=== PATIENT | female | born 1970 | race Caucasian/White ===

== ENCOUNTER 2016-10-25 13:52 | Emergency (ER) | payer MEDICAID, OTHER ==
[~2016-10-25] VITALS: Ht 160 cm; Wt 61.4 kg
[~2016-10-25 13:52] MED LIST: IBUP-1827 PO; PRD5T PO; QUET100T69 PO; ZOV800 PO
[2016-10-25 14:16] VITALS: BP 137/89; PULSE 112; RESP 20; O2SAT 98
--- NOTE | 2016-10-25 17:21 | ED.REPORT ---
HPI-General Illness Date of Service Oct 25, 2016 ED Provider: Harvey Candelario DO Pt is a 46 year old female with a history of substance abuse who presents to the ED with concerns for lack of a place to live. She reports that she was living with her boyfriend, but he was taken to halfway yesterday. Pt states that she feels that she cannot care for herself, because she "cannot remember things ". She believes this is due to her lapse in Klonopin, which she has not taken for a week. Pt denies SI or HI or any other concerns. Nursing Notes Stated Complaint: SUBSTANCE ABUSE Chief Complaint: Psychiatric Complaint Nursing Notes Reviewed: Yes Allergies: Coded Allergies: fluoxetine (Verified Allergy, Severe, 09/30/16) prochlorperazine (Verified Allergy, Severe, 09/30/16) venlafaxine (Verified Allergy, Severe, 09/30/16) hydroxyzine pamoate (Verified Allergy, Unknown, 09/30/16) made her crazy zolpidem (Verified Allergy, Unknown, 09/30/16) nitrofurantoin (Verified Adverse Reaction, Unknown, nausea/vomiting, ) Scheduled Acyclovir (Acyclovir) 800 Mg Tab 800 MG PO TID Prednisone (PredniSONE) 5 Mg Tab 15 MG PO DAILY Quetiapine Fumarate (Quetiapine Fumarate) 100 Mg Tablet 300 MG PO HS Quetiapine Fumarate (Quetiapine Fumarate) 100 Mg Tablet 100 MG PO MORNING Scheduled PRN Ibuprofen (Ibuprofen) 600 Mg Tablet 600 MG PO QID PRN PRN For Pain General Time Seen by MD: 16:03 Chief Complaint Other (Psych ) Hx Obtained From: Patient Arrived By: Walk-in Sudden in Onset?: No Severity: Current: No pain currently Severity: Maximum: No pain Similar Sx Previous: Yes Past Medical History Past Medical History Notes: Multiple ED visits with concerns for medication refills (Pt has repeatedly presented to ED requesting prednisone dose changes/refills) Past Medical History Lupus - certainty and nature of diagnosis is unclear Chronic back pain (slipped disk in back) Addisons disease arthritis stroke (1998) Depression PTSD Reports: Diabetes mellitus, Hypertension, Stroke Past Surgical History Cardiac septal defect repaired Sinus surgery Reports: Cholecystectomy, Hysterectomy Family History Noncontributory Smoking History Current Every Day Smoker Social History Alcohol Use: Denies alcohol use Drug Use: Meth, THC Other Social History: Frequent ED visitor, Local resident Ambulatory Status Independent Review of Systems Full Review of Systems Constitutional: Denies: Chills, Fever, Malaise, Weakness - generalized Respiratory: Denies: Non-productive cough, Shortness of breath, Wheezing Cardiovascular: Denies: Chest pain, Syncope GI: Denies: Abdominal pain, Constipation, Nausea, Vomiting Female: Denies: Dysuria, Flank pain, Urinary frequency, Urinary urgency Musculoskeletal: Denies: Back pain, Extremity pain, Neck pain Neurologic: Denies: Change LOC, Dizziness, Headache, Seizure, Syncope, Weakness Psychiatric: Denies: Homicidal ideation, Suicidal ideation Complete sys rev & neg: except as marked. Physical Exam Vital Signs Vital Signs Date Time Temp Pulse Resp B/P Pulse Ox O2 Delivery O2 Flow Rate FiO2 10/25/16 14:16 36.8 112 20 137/89 98 Room Air Initial VS: Reviewed General/Constitutional: Well-developed, Well-nourished Head / Eyes: Atraumatic, Normocephalic, PERRL ENT: Mucous membranes moist, Conjunctiva normal, No scleral icterus Neck: Supple, Non-tender, Full range of motion Respiratory: Breath sounds normal, Clear to auscultation, No respiratory distress Cardiovascular: Regular rate & rhythm, Heart sounds normal, Intact distal pulses Abdomen / GI: Soft, Non-tender, No guarding, No rebound, No distention Skin: Warm, Dry, No cyanosis Psychiatric: Not suicidal Abnormal Mood/Affect: Positive: Labile Re-Eval/Medical Decision Med Decision/Clinical Course Overall patient has no obvious chief complaint, she is here because of housing issues. I do not suspect any emergent medical condition. She is not suicidal. She is also seen and evaluated by social work who agrees with the discharge plan. Source of Hx: Old records Time of Eval: 17:28 Re-Evaluation/Progress Note: Pt is informed of the plan to dc now. Counseled Regarding: Diagnosis, When/why to return to ED Discharge & Departure Primary Impression: Acute situational disturbance Disposition: Home Discharge Condition All VS Reviewed: Yes Condition: Stable Additional Instructions: Uses adoption social worker resources provided. Follow-up with your primary care doctor as needed or return to the ER as needed. Referrals: Arin Mata MD (PCP) Scribe Attestation Portions of this note were transcribed by Aylin Landrum. I, Dr. Candelario personally performed the history, physical exam and medical decision-making; I reviewed and confirmed the accuracy of the information in the transcribed note. Signed by: Yaya Lopez, 10/25/2016 1729 copies to: Arin Mata MD, Timothy S DO Oct 25, 2016 17:21 BENIGNO LANDRUM Oct 25, 2016 17:28
== END 2016-10-25 17:31 | disposition home or self-care (01) ==
LOC: SED 13:52 → EDBD 13:52 → SED 17:31
DX: F43.0 Acute stress reaction (principal); E27.1 Primary adrenocortical insufficiency; E11.9 Type 2 diabetes mellitus without complications; I10 Essential (primary) hypertension; F17.200 Nicotine dependence, unspecified, uncomplicated; Z86.73 Personal history of transient ischemic attack (TIA), and cerebral infarction without residual deficits; Z88.8 Allergy status to other drugs, medicaments and biological substances

== ENCOUNTER 2016-10-27 08:34 | Emergency (ER) | payer OTHER ==
[~2016-10-27] VITALS: Ht 160 cm; Wt 59.1 kg
[~2016-10-27 08:34] MED LIST changes: +KLO5T PO; +QUET300T44 PO; +SUMA50TA2 PO
[2016-10-27 08:37] VITALS: BP 131/84; PULSE 99; RESP 15; O2SAT 100
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
== END 2016-10-27 10:21 | disposition home or self-care (01) ==
LOC: SED 08:34
DX: F13.10 Sedative, hypnotic or anxiolytic abuse, uncomplicated (principal); F32.9 Major depressive disorder, single episode, unspecified; F41.8 Other specified anxiety disorders; F43.0 Acute stress reaction; I10 Essential (primary) hypertension; E11.9 Type 2 diabetes mellitus without complications; Z86.73 Personal history of transient ischemic attack (TIA), and cerebral infarction without residual deficits; F17.200 Nicotine dependence, unspecified, uncomplicated; Z88.1 Allergy status to other antibiotic agents; Z88.8 Allergy status to other drugs, medicaments and biological substances

== ENCOUNTER 2016-10-29 09:23 | Emergency (ER) | payer OTHER ==
[~2016-10-29] VITALS: Ht 160 cm; Wt 61.4 kg
[~2016-10-29 09:23] MED LIST changes: -KLO5T PO; -QUET300T44 PO; -SUMA50TA2 PO
[2016-10-29 09:39] VITALS: BP 147/99; PULSE 106; RESP 16; O2SAT 98
--- NOTE | 2016-10-29 09:55 | ED.REPORT ---
HPI-General Illness Date of Service Oct 29, 2016 ED Provider: Domenica Tan MD 46 year old female with a history of frequent ER visits and drug abuse presents to the ED for unclear reasons. She complains of knee pain and not having her medications filled. Nursing Notes Stated Complaint: MEDICATION/EVAL Chief Complaint: General Complaint Nursing Notes Reviewed: Yes Allergies: Coded Allergies: fluoxetine (Verified Allergy, Severe, 09/30/16) prochlorperazine (Verified Allergy, Severe, 09/30/16) venlafaxine (Verified Allergy, Severe, 09/30/16) hydroxyzine pamoate (Verified Allergy, Unknown, 09/30/16) made her crazy zolpidem (Verified Allergy, Unknown, 09/30/16) nitrofurantoin (Verified Adverse Reaction, Unknown, nausea/vomiting, ) Scheduled Acyclovir (Acyclovir) 800 Mg Tab 800 MG PO TID Prednisone (PredniSONE) 5 Mg Tab 15 MG PO DAILY Quetiapine Fumarate (Quetiapine Fumarate) 100 Mg Tablet 300 MG PO HS Quetiapine Fumarate (Quetiapine Fumarate) 100 Mg Tablet 100 MG PO MORNING Scheduled PRN Ibuprofen (Ibuprofen) 600 Mg Tablet 600 MG PO QID PRN PRN For Pain General Time Seen by MD: 09:49 Chief Complaint Other Hx Obtained From: Patient Arrived By: Walk-in Onset Occurred: Onset unknown Location: : Knee left: Knee right Quality: Painful Severity: Current: Moderate Recent Healthcare: Recent doctor visit Similar Sx Previous: Yes Past Medical History Past Medical History Notes: Multiple ED visits with concerns for medication refills (Pt has repeatedly presented to ED requesting prednisone dose changes/refills) 6 visits in August, 4 visits [place] and has been here 3 times in the last 3 days. Past Medical History Lupus - certainty and nature of diagnosis is unclear Chronic back pain (slipped disk in back) Addisons disease arthritis stroke (1998) Depression PTSD history of psychosis, NOS, with previous hospital admissions Reports: Diabetes mellitus, Hypertension, Stroke Past Surgical History Cardiac septal defect repaired Sinus surgery Reports: Cholecystectomy, Hysterectomy Family History Noncontributory Smoking History Current Every Day Smoker Social History Alcohol Use: Denies alcohol use Drug Use: Meth, THC Other Social History: Frequent ED visitor, Local resident Ambulatory Status Independent Review of Systems Full Review of Systems Constitutional: Denies: Fever Respiratory: Denies: Shortness of breath Cardiovascular: Denies: Chest pain Musculoskeletal: Reports: Joint pain Complete sys rev & neg: except as marked. Physical Exam Vital Signs Vital Signs Date Time Temp Pulse Resp B/P Pulse Ox O2 Delivery O2 Flow Rate FiO2 10/29/16 09:39 37.3 106 16 147/99 98 Room Air Initial VS: Reviewed Head / Eyes: Atraumatic, Normocephalic ENT: Conjunctiva normal, No scleral icterus Neck: Full range of motion Respiratory: No respiratory distress Neurologic: Alert, Oriented Psychiatric: Mood/affect normal, Behavior normal General/Constitutional: Awake, Alert calm, focused and appropriate Re-Eval/Medical Decision Med Decision/Clinical Course Going to rehab in rehab in [place] tomorrow [facility] to day to get bus pass for tomorrow Prescriptions available at [facility] to fill; 21 5mg prednisone on 10/26, 7 100mg seroquel on 10/26 and 300mg seroquel. Has been asked to not return to [facility] due to behavior at that pharmacy visit Nothing additional to offer today Time of Eval: 10:56 Re-Evaluation/Progress Note: Discussed plan for discharge and follow up. All questions addressed. 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 A new year, a new start, I hope you can make the most of it all. Referrals: Arin Mata MD (PCP) Scribe Attestation Portions of this note were transcribed by Grace Vargas. I, (Domenica Tan MD ) personally performed the history, physical exam and medical decision-making; I reviewed and confirmed the accuracy of the information in the transcribed note. Signed by: Grace Vargas. 10/29/2016, 1102 copies to: Arin Mata MD, Shawna L MD Oct 29, 2016 09:55 Grace Vargas Oct 29, 2016 10:50
[2016-10-29 10:57] VITALS: BP 139/82; PULSE 88; RESP 18
== END 2016-10-29 10:59 | disposition home or self-care (01) ==
LOC: SED 09:23
DX: F15.10 Other stimulant abuse, uncomplicated (principal); M25.561 Pain in right knee; M25.562 Pain in left knee; E27.1 Primary adrenocortical insufficiency; E11.9 Type 2 diabetes mellitus without complications; I10 Essential (primary) hypertension; Z86.73 Personal history of transient ischemic attack (TIA), and cerebral infarction without residual deficits; Z87.74 Personal history of (corrected) congenital malformations of heart and circulatory system; F17.200 Nicotine dependence, unspecified, uncomplicated; Z88.8 Allergy status to other drugs, medicaments and biological substances

== ENCOUNTER 2016-11-29 11:08 | Emergency (ER) | payer OTHER ==
[2016-11-29 11:20] VITALS: PULSE 112; RESP 18; O2SAT 97
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
--- NOTE | 2016-11-29 15:56 | NUR ---
spiritual care: routine caring visit as pt crying out from ER bed. Supportive listening as pt expressed pain, and various sources of distress. Pt engaged conversationally, often clenching her temples and expressing emotional/spiritual distress and pain; occasionally moaning.
[2016-11-29 16:28] VITALS: BP 150/68; PULSE 110; RESP 22; O2SAT 98
[2016-11-29 18:00] VITALS: BP 115/83; PULSE 110; RESP 18; O2SAT 99
== END 2016-11-29 18:02 | disposition home or self-care (01) ==
LOC: SED 11:08
DX: F23 Brief psychotic disorder (principal); F15.20 Other stimulant dependence, uncomplicated; E11.9 Type 2 diabetes mellitus without complications; I10 Essential (primary) hypertension; F17.200 Nicotine dependence, unspecified, uncomplicated; Z88.8 Allergy status to other drugs, medicaments and biological substances; Z86.73 Personal history of transient ischemic attack (TIA), and cerebral infarction without residual deficits

== ENCOUNTER 2016-12-02 07:00 | Emergency (ER) | payer OTHER ==
[~2016-12-02] VITALS: Ht 160 cm; Wt 61.4 kg
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
[2016-12-02 07:08] VITALS: BP 157/95; PULSE 111; RESP 16; O2SAT 99
== END 2016-12-02 07:22 | disposition home or self-care (01) ==
LOC: SED 07:00
DX: F43.0 Acute stress reaction (principal); E11.9 Type 2 diabetes mellitus without complications; I10 Essential (primary) hypertension; F17.200 Nicotine dependence, unspecified, uncomplicated; Z86.73 Personal history of transient ischemic attack (TIA), and cerebral infarction without residual deficits; Z88.8 Allergy status to other drugs, medicaments and biological substances; Z88.1 Allergy status to other antibiotic agents

== ENCOUNTER 2016-12-03 16:21 | Emergency (ER) | payer OTHER ==
[2016-12-03 16:24] VITALS: BP 129/92; PULSE 96; RESP 18; O2SAT 99
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
== END 2016-12-03 17:50 | disposition home or self-care (01) ==
LOC: SED 16:21 → EDBD 16:21 → SED 17:50
DX: F43.0 Acute stress reaction (principal); I10 Essential (primary) hypertension; E11.9 Type 2 diabetes mellitus without complications; F17.200 Nicotine dependence, unspecified, uncomplicated; Z86.73 Personal history of transient ischemic attack (TIA), and cerebral infarction without residual deficits; Z88.8 Allergy status to other drugs, medicaments and biological substances

== ENCOUNTER 2016-12-06 16:14 | Emergency (ER) | payer OTHER ==
[2016-12-06 16:37] VITALS: BP 127/90; PULSE 95; RESP 16; O2SAT 95
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
== END 2016-12-06 17:59 | disposition home or self-care (01) ==
LOC: SED 16:14
DX: F41.9 Anxiety disorder, unspecified (principal); F22 Delusional disorders; F15.20 Other stimulant dependence, uncomplicated; F43.0 Acute stress reaction; E11.9 Type 2 diabetes mellitus without complications; I10 Essential (primary) hypertension; F17.200 Nicotine dependence, unspecified, uncomplicated; Z86.73 Personal history of transient ischemic attack (TIA), and cerebral infarction without residual deficits; Z59.0 Homelessness; Z88.8 Allergy status to other drugs, medicaments and biological substances

== ENCOUNTER 2016-12-08 16:14 | Emergency (ER) | payer OTHER ==
[2016-12-08 16:19] VITALS: BP 149/100; PULSE 111; O2SAT 100
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
[2016-12-08 21:28] VITALS: BP 143/87; PULSE 100; RESP 18; O2SAT 99
== END 2016-12-08 21:29 | disposition home or self-care (01) ==
LOC: EDUNIT# 16:14 → SED 16:14 → EDBD 16:14 → SED 21:29
DX: F19.20 Other psychoactive substance dependence, uncomplicated (principal); F15.20 Other stimulant dependence, uncomplicated; E11.9 Type 2 diabetes mellitus without complications; I10 Essential (primary) hypertension; F17.200 Nicotine dependence, unspecified, uncomplicated; Z86.73 Personal history of transient ischemic attack (TIA), and cerebral infarction without residual deficits; Z88.8 Allergy status to other drugs, medicaments and biological substances; Z88.1 Allergy status to other antibiotic agents

== ENCOUNTER 2016-12-10 15:56 | Emergency (ER) | payer OTHER ==
[2016-12-10 16:24] VITALS: BP 144/100; PULSE 108; RESP 16; O2SAT 98
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
[2016-12-10 21:19] VITALS: BP 119/82; PULSE 108; RESP 16; O2SAT 97
== END 2016-12-10 21:15 | disposition home or self-care (01) ==
LOC: SED 15:56
DX: F15.20 Other stimulant dependence, uncomplicated (principal); E11.9 Type 2 diabetes mellitus without complications; I10 Essential (primary) hypertension; F17.200 Nicotine dependence, unspecified, uncomplicated; Z86.73 Personal history of transient ischemic attack (TIA), and cerebral infarction without residual deficits; Z88.8 Allergy status to other drugs, medicaments and biological substances

== ENCOUNTER 2016-12-12 08:40 | Emergency (ER) | payer OTHER ==
[2016-12-12 08:46] VITALS: BP 120/82; PULSE 108; RESP 18; O2SAT 100
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
== END 2016-12-12 09:36 | disposition home or self-care (01) ==
LOC: SED 08:40
DX: F29 Unspecified psychosis not due to a substance or known physiological condition (principal); F15.20 Other stimulant dependence, uncomplicated; I10 Essential (primary) hypertension; E11.9 Type 2 diabetes mellitus without complications; F17.200 Nicotine dependence, unspecified, uncomplicated; Z91.19 Patient's noncompliance with other medical treatment and regimen; Z86.73 Personal history of transient ischemic attack (TIA), and cerebral infarction without residual deficits; Z59.0 Homelessness; Z88.8 Allergy status to other drugs, medicaments and biological substances

== ENCOUNTER 2016-12-13 17:12 | Emergency (ER) | payer OTHER ==
[2016-12-13 17:22] VITALS: BP 122/85; PULSE 103; RESP 20; O2SAT 100
[2016-12-13 18:58] VITALS: BP 95/59; PULSE 93; RESP 20; O2SAT 98
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
[2016-12-13 21:35] VITALS: BP 95/59; PULSE 93; RESP 20; O2SAT 98
== END 2016-12-13 21:00 | disposition home or self-care (01) ==
LOC: SED 17:12
DX: F41.9 Anxiety disorder, unspecified (principal); F22 Delusional disorders; E11.9 Type 2 diabetes mellitus without complications; I10 Essential (primary) hypertension; Z86.73 Personal history of transient ischemic attack (TIA), and cerebral infarction without residual deficits; F17.200 Nicotine dependence, unspecified, uncomplicated; Z88.8 Allergy status to other drugs, medicaments and biological substances

== ENCOUNTER 2016-12-13 23:20 | Emergency (ER) | payer OTHER ==
[~2016-12-13] VITALS: Ht 160 cm; Wt 61.4 kg
[2016-12-13 23:34] VITALS: BP 115/75; PULSE 80; RESP 16; O2SAT 100
--- NOTE | 2016-12-13 23:34 | ED.REPORT ---
HPI-Psychiatric Illness Date of Service Dec 13, 2016 ED Provider: Luis Tillman MD Pt is a 46 y/o female w/ a hx of multiple frequent ED visits, anxiety, depression, PTSD, presenting to the ED via EMS with chief complaint of "needing somewhere to sleep". The patient was seen earlier today in the ED for anxiety and was evaluated by the administrator social welfare and me with a plan for housing in [facility]. She reportedly showed up and they denied her admission. She returns via ambulance because she "needs a place to sleep". There are no other acute complaints. Nursing Notes Stated Complaint: NEEDS PLACE TO SLEEP Nursing Notes Reviewed: Yes Allergies: Coded Allergies: fluoxetine (Verified Allergy, Severe, 12/06/16) prochlorperazine (Verified Allergy, Severe, 12/06/16) venlafaxine (Verified Allergy, Severe, 12/06/16) hydroxyzine pamoate (Verified Allergy, Unknown, 12/06/16) made her crazy zolpidem (Verified Allergy, Unknown, 12/06/16) nitrofurantoin (Verified Adverse Reaction, Unknown, nausea/vomiting, ) Scheduled Acyclovir (Acyclovir) 800 Mg Tab 800 MG PO TID Prednisone (PredniSONE) 5 Mg Tab 15 MG PO DAILY Quetiapine Fumarate (Quetiapine Fumarate) 100 Mg Tablet 300 MG PO HS Quetiapine Fumarate (Quetiapine Fumarate) 100 Mg Tablet 100 MG PO MORNING Scheduled PRN Ibuprofen (Ibuprofen) 600 Mg Tablet 600 MG PO QID PRN PRN For Pain General Time Seen by MD: 23:32 Chief Complaint Other (sleep) Hx Obtained From: Patient, EMS Arrived By: Ambulance Onset Occurred: Just prior to arrival Symptom Duration: Since onset Severity: Current: No pain currently Severity: Maximum: No pain Recent Healthcare: Recent doctor visit, Recent hospitalization, Recent testing , Previous diagnosis, Prior workup Similar Sx Previous: Yes Risk-Psychiatric Illness Suicide Risk Stratification RF Statements: Risk factors N/A Past Medical History Past Medical History Notes: [address] [facility] in 2017. SEE JOSE MANUEL SHEET Past Medical History Lupus - certainty and nature of diagnosis is unclear Chronic back pain (slipped disk in back) Addisons disease - PCP says this may not be an official diagnosis - see JOSE MANUEL sheet arthritis stroke (1998) Depression PTSD history of psychosis, NOS, with previous hospital admissions Reports: Diabetes mellitus, Hypertension, Stroke Past Surgical History Cardiac septal defect repaired Sinus surgery Reports: Cholecystectomy, Hysterectomy Family History Noncontributory Smoking History Current Every Day Smoker Social History Alcohol Use: Denies alcohol use Drug Use: Meth, THC Other Social History: Frequent ED visitor, Local resident Ambulatory Status Independent Review of Systems Review of Systems Note: + homelessness Complete sys rev & neg: except as marked. Physical Exam Initial Vital Signs Vital Signs (First) Date Time Temp Pulse Resp B/P Pulse Ox O2 Delivery O2 Flow Rate FiO2 12/13/16 23:34 37.1 80 16 115/75 100 Room Air Initial VS: Reviewed Head / Eyes: Atraumatic, Normocephalic, PERRL ENT: No scleral icterus Neck: Full range of motion Respiratory: No respiratory distress Cardiovascular: Intact distal pulses Abdomen / GI: Soft, No distention Skin: Warm, Dry, No cyanosis General/Constitutional: Awake, Alert, No acute distress, Well appearing, Cooperative, Not toxic appearing Neurologic: Oriented X3, Speech NL, No motor deficits, No sensory deficits Psychiatric: Affect NL, Mood NL, Not suicidal, Not homicidal Re-Eval/Medical Decision Med Decision/Clinical Course 46-year-old female history of PTSD, anxiety, depression, psychosis , homelessness presenting for her second emergency department visit of the day. Is no new complaints. She is requesting clonazepam and a place to sleep. She has no SI or HI. She was seen by administrator social welfare earlier today and recommended to be discharged home with follow up with [facility] tomorrow. Patient has no new complaints and again will be discharged with plans to follow-up with resources provided by administrator social welfare. Return precautions given. Source of Hx: Old records Re-Evaluation/Progress : Time of Eval: 00:15 Re-Evaluation/Progress Note: Pt rechecked. Informed pt of plan for treatment. Pt understands and agrees with plan for treatment. F/U instructions and RTER warnings given. All questions addressed. Counseled Regarding: Diagnosis, Need for follow-up, When/why to return to ED Discharge & Departure Impression: Primary Impression: Homelessness Additional Impression: Anxiety )( Condition at Discharge: No danger to self, No danger to others, No suicidal ideation, No homicidal ideation Disposition: Home Discharge Condition All VS Reviewed: Yes Condition: Stable Patient Instructions: Generalized Anxiety Disorder (ED) Additional Instructions: Follow-up with [facility] tomorrow as was discussed with you earlier today by our administrator social welfare. We can not let you sleep in our department tonight. Our department is for people with medical emergencies. Return to the emergency department for suicidal ideations, homicidal ideations, or for other medical emergencies. Referrals: Arin Mata MD (PCP) Scribe Attestation Portions of this note were transcribed by Travis Greene. I, Dr. Tillman, personally performed the history, physical exam and medical decision-making; I reviewed and confirmed the accuracy of the information in the transcribed note. Signed by Yaya Bolden, 12/13/16 - [id number] copies to: Arin Mata MD, Ben M MD Dec 13, 2016 23:33 TRAVIS GREENE Dec 13, 2016 23:46
[2016-12-14 00:44] VITALS: BP 115/75; PULSE 80; RESP 16; O2SAT 100
== END 2016-12-14 00:46 | disposition home or self-care (01) ==
LOC: SED 23:20
DX: F41.9 Anxiety disorder, unspecified (principal); I10 Essential (primary) hypertension; E11.9 Type 2 diabetes mellitus without complications; F15.10 Other stimulant abuse, uncomplicated; F17.200 Nicotine dependence, unspecified, uncomplicated; F12.10 Cannabis abuse, uncomplicated; Z59.0 Homelessness; Z86.73 Personal history of transient ischemic attack (TIA), and cerebral infarction without residual deficits; Z79.52 Long term (current) use of systemic steroids; Z88.8 Allergy status to other drugs, medicaments and biological substances

== ENCOUNTER 2016-12-17 20:18 | Emergency (ER) | payer OTHER ==
[~2016-12-17] VITALS: Ht 160 cm; Wt 61.4 kg
[2016-12-17 20:31] VITALS: BP 175/112; PULSE 111; RESP 16; O2SAT 100
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
[2016-12-17 23:47] LABS: BASOPHILS % (AUTO) 0.2 % (0-3); EOSINOPHILS % (AUTO) 0.2 % (0-5); MONOCYTES % (AUTO) 6.6 % (4-12); Mean Corpuscular Hemoglobin 31.5 pg (27.0-35.0); Mean Corpuscular Volume 93.1 fL (81-100); NEUTROPHILS % (AUTO) 71.1 % (40-74); Platelet Count 272 bil/L (150-400)
== END 2016-12-18 02:46 | disposition home or self-care (01) ==
LOC: SED 20:18 → EDUNIT# 20:18 → EDBD 20:18 → SED 12-18 02:46
DX: F15.20 Other stimulant dependence, uncomplicated (principal); F43.0 Acute stress reaction; F29 Unspecified psychosis not due to a substance or known physiological condition; F32.9 Major depressive disorder, single episode, unspecified; F43.10 Post-traumatic stress disorder, unspecified; E11.9 Type 2 diabetes mellitus without complications; I10 Essential (primary) hypertension; F17.200 Nicotine dependence, unspecified, uncomplicated; Z86.73 Personal history of transient ischemic attack (TIA), and cerebral infarction without residual deficits; Z59.0 Homelessness; Z88.8 Allergy status to other drugs, medicaments and biological substances; Z88.1 Allergy status to other antibiotic agents
CPT/HCPCS: 36415; 80053; 85025; 99285; G0480

== ENCOUNTER 2017-01-08 14:22 | Emergency (ER) | payer OTHER ==
[~2017-01-08] VITALS: Ht 160 cm; Wt 61.4 kg
[2017-01-08 14:24] VITALS: BP 149/97; PULSE 119; RESP 18; O2SAT 100
[2017-01-08] MEDS ORDERED: KLO5T PO (14:28)
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
== END 2017-01-08 19:00 | disposition home or self-care (01) ==
LOC: SED 14:22
DX: F11.10 Opioid abuse, uncomplicated (principal); I10 Essential (primary) hypertension; E11.9 Type 2 diabetes mellitus without complications; M32.9 Systemic lupus erythematosus, unspecified; F17.200 Nicotine dependence, unspecified, uncomplicated; F43.10 Post-traumatic stress disorder, unspecified; Z88.1 Allergy status to other antibiotic agents; Z88.5 Allergy status to narcotic agent; Z88.8 Allergy status to other drugs, medicaments and biological substances; Z90.710 Acquired absence of both cervix and uterus
CPT/HCPCS: 81002; 99283; G0480

== ENCOUNTER 2017-01-13 08:38 | Emergency (ER) | payer OTHER ==
[~2017-01-13] VITALS: Ht 160 cm; Wt 61.4 kg
[~2017-01-13 08:38] MED LIST changes: -IBUP-1827 PO; +KLO5T PO; -QUET100T69 PO; -ZOV800 PO
[2017-01-13 08:53] VITALS: BP 159/95; PULSE 84; RESP 20; O2SAT 98
--- NOTE | 2017-01-13 09:32 | ED.REPORT ---
HPI-Psychiatric Illness Date of Service Jan 13, 2017 ED Provider: Nakul Amezcua MD Pt is a 46 y/o female w/ a hx of very frequent ED visits (16 so far in 2017), polysubstance abuse, chronic pain, depression, PTSD, HTN, DM, stroke, presenting to the ED c/o feelings of hopelessness. She states she doesn't want to live anymore because "it's too much" (when asked what is troubling her she does not say why). She denies illicit drug or alcohol use. She is lying on the ground by the chairs upon arrival to interview sobbing and will not provide any history or answer any questions. Nursing Notes Stated Complaint: MENTAL EVAL Chief Complaint: Psychiatric Complaint Nursing Notes Reviewed: Yes Allergies: Coded Allergies: fluoxetine (Verified Allergy, Severe, 01/08/17) prochlorperazine (Verified Allergy, Severe, 01/08/17) venlafaxine (Verified Allergy, Severe, 01/08/17) hydroxyzine pamoate (Verified Allergy, Unknown, 01/08/17) made her crazy zolpidem (Verified Allergy, Unknown, 01/08/17) nitrofurantoin (Verified Adverse Reaction, Unknown, nausea/vomiting, ) Scheduled Clonazepam (Clonazepam) 0.5 Mg Tablet 0.5 MG PO BID Prednisone (PredniSONE) 5 Mg Tab 15 MG PO DAILY General Time Seen by MD: 09:19 Chief Complaint Depressed Hx Obtained From: Patient Unable to Obtain Hx: Patient condition Arrived By: Walk-in Risk-Psychiatric Illness Suicide Risk Stratification RF Statements: Risk factors reviewed Past Medical History Past Medical History Notes: 16 ED visits at [facility] in 2017 as of 01/13 SEE JOSE MANUEL SHEET Past Medical History Lupus - certainty and nature of diagnosis is unclear Chronic back pain (slipped disk in back) Addisons disease - PCP says this may not be an official diagnosis - see JOSE MANUEL sheet arthritis stroke (1998) Depression PTSD history of psychosis, NOS, with previous hospital admissions Reports: Diabetes mellitus, Hypertension, Stroke Past Surgical History Cardiac septal defect repaired Sinus surgery Reports: Cholecystectomy, Hysterectomy Family History Noncontributory Smoking History Current Every Day Smoker Social History Alcohol Use: Denies alcohol use Drug Use: Meth, THC Other Social History: Frequent ED visitor, Local resident Ambulatory Status Independent Review of Systems Unable to Obtain ROS Patient condition Physical Exam Initial Vital Signs Vital Signs (First) Date Time Temp Pulse Resp B/P Pulse Ox O2 Delivery O2 Flow Rate FiO2 01/13/17 08:53 36.4 84 20 159/95 98 Room Air Initial VS: Reviewed, Vital signs normal Head / Eyes: Atraumatic, Normocephalic, PERRL ENT: Mucous membranes moist, Conjunctiva normal, No scleral icterus Neck: Supple, Full range of motion Respiratory: No respiratory distress Cardiovascular: Intact distal pulses Abdomen / GI: Soft, No distention Extremities: Vascular intact, Neuro intact, No swelling, No tenderness Skin: Warm, Dry, No cyanosis General/Constitutional: Awake, Alert, No acute distress, Not toxic appearing Behavior: Positive: Uncooperative She is sobbing lying on the exam floor on top of her clothing. She does not cooperate with history taking Neurologic: Oriented X3, Speech NL, No motor deficits Unable to Evaluate: Positive: Uncooperative Re-Eval/Medical Decision Med Decision/Clinical Course Pt is a 46 y/o female w/ a hx of very frequent ED visits (16 so far in 2017), polysubstance abuse, chronic pain, depression, PTSD, HTN, DM, stroke, presenting to the ED c/o feelings of hopelessness. She states she doesn't want to live anymore because "it's too much" (when asked what is troubling her she does not say why). She denies illicit drug or alcohol use. She is lying on the ground by the chairs upon arrival to interview sobbing and will not provide any history or answer any questions. She is afebrile with stable vital signs and no evidence of trauma on examination. He continues to refuse to provide any history and when asked if she is suicidal she states that she "just cannot take it anymore" though she does not articulate that she is having suicidal feelings or any plan. He will not answer any questions regarding why she is so upset today or if she is currently been using any drugs or alcohol. That being said she does not appear clinically intoxicated. Additionally, this is a quite typical presentation for this patient. She was discussed in detail with and evaluated by our emergency department web content & social media manager Inez Weaver. Pt has extensive community resources which she is currently not utilizing. She continues to be noncooperative with both myself and our web content & social media manager and refuses to engage in any history taking or planning for how we can help her. At this time we see no objective indication this patient is suicidal or that she poses any immediate risk of harm to self or others. We reviewed with her the extensive resources that she has available in the community and advised her to follow-up with these resources. She was provided with follow-up and return precautions and discharged in stable condition. Of note, at time of discharge she refused to leave and consideration of involving law enforcement was made. Counseled Regarding: Diagnosis, Need for follow-up, When/why to return to ED Discharge & Departure Impression: Primary Impression: Depression Depression Type: unspecified Qualified Code: F32.9 - Major depressive disorder, single episode, unspecified Additional Impressions: Acute situational disturbance Polysubstance abuse Disposition: Home Discharge Condition All VS Reviewed: Yes Condition: Stable Patient Instructions: Major Depression (GEN) Additional Instructions: Return to the emergency department if you experience any medical emergencies or if you have any suicidal or homicidal thoughts. We are here to help if you want to cooperate. Follow-up with your doctor this week. Use the resources our web content & social media manager has provided you with today. Referrals: Arin Mata MD (PCP) Scribe Attestation Portions of this note were transcribed by Travis Greene. I, Dr. Amezcua personally performed the history, physical exam and medical decision-making; I reviewed and confirmed the accuracy of the information in the transcribed note. Signed by Yaya Bolden, 01/13/17 - [id number] copies to: Arin Mata MD, Beck O MD Jan 13, 2017 09:32 TRAVIS GREENE Jan 13, 2017 09:41
== END 2017-01-13 09:53 | disposition home or self-care (01) ==
LOC: SED 08:38
DX: F32.9 Major depressive disorder, single episode, unspecified (principal); F43.0 Acute stress reaction; F19.10 Other psychoactive substance abuse, uncomplicated; E11.9 Type 2 diabetes mellitus without complications; I10 Essential (primary) hypertension; F17.200 Nicotine dependence, unspecified, uncomplicated; Z86.73 Personal history of transient ischemic attack (TIA), and cerebral infarction without residual deficits; Z88.8 Allergy status to other drugs, medicaments and biological substances

== ENCOUNTER 2017-01-13 12:31 | Emergency (ER) | payer OTHER ==
[~2017-01-13] VITALS: Ht 160 cm; Wt 61.4 kg
[2017-01-13 12:41] VITALS: BP 132/68; PULSE 96; RESP 16; O2SAT 98
--- NOTE | 2017-01-13 13:12 | ED.REPORT ---
HPI-Psychiatric Illness Date of Service Jan 13, 2017 ED Provider: Nakul Amezcua MD History of Present Illness: just walked out Nursing Notes Stated Complaint: MENTAL ISSUES Chief Complaint: Psychiatric Complaint Allergies: Coded Allergies: fluoxetine (Verified Allergy, Severe, 01/08/17) prochlorperazine (Verified Allergy, Severe, 01/08/17) venlafaxine (Verified Allergy, Severe, 01/08/17) hydroxyzine pamoate (Verified Allergy, Unknown, 01/08/17) made her crazy zolpidem (Verified Allergy, Unknown, 01/08/17) nitrofurantoin (Verified Adverse Reaction, Unknown, nausea/vomiting, ) Scheduled Clonazepam (Clonazepam) 0.5 Mg Tablet 0.5 MG PO BID Prednisone (PredniSONE) 5 Mg Tab 15 MG PO DAILY General Time Seen by MD: 14:55 Past Medical History Past Medical History Notes: 16 ED visits at [facility] in 2017 as of 01/13 SEE JOSE MANUEL SHEET Past Medical History Lupus - certainty and nature of diagnosis is unclear Chronic back pain (slipped disk in back) Addisons disease - PCP says this may not be an official diagnosis - see JOSE MANUEL sheet arthritis stroke (1998) Depression PTSD history of psychosis, NOS, with previous hospital admissions Reports: Diabetes mellitus, Hypertension, Stroke Past Surgical History Cardiac septal defect repaired Sinus surgery Reports: Cholecystectomy, Hysterectomy Family History Noncontributory Smoking History Current Every Day Smoker Social History Alcohol Use: Denies alcohol use Drug Use: Meth, THC Other Social History: Frequent ED visitor, Local resident Ambulatory Status Independent Physical Exam Initial Vital Signs Vital Signs (First) Date Time Temp Pulse Resp B/P Pulse Ox O2 Delivery O2 Flow Rate FiO2 01/13/17 12:41 36.9 96 16 132/68 98 Room Air Discharge & Departure Referrals: Arin Mata MD (PCP) Nakul Amezcua MD Jan 13, 2017 13:12 Evelia Moore Jan 13, 2017 14:23
== END 2017-01-13 15:00 | disposition left against medical advice (07) ==
LOC: SED 12:31
DX: Z00.8 Encounter for other general examination (principal)

== ENCOUNTER 2017-04-18 17:45 | Emergency (ER) | payer OTHER ==
[~2017-04-18] VITALS: Ht 160 cm; Wt 65.9 kg
[2017-04-18 17:49] VITALS: BP 111/81; PULSE 96; RESP 16; O2SAT 98
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
== END 2017-04-18 19:49 | disposition home or self-care (01) ==
LOC: SED 17:45
DX: F41.9 Anxiety disorder, unspecified (principal); F43.10 Post-traumatic stress disorder, unspecified; E11.9 Type 2 diabetes mellitus without complications; I10 Essential (primary) hypertension; F17.200 Nicotine dependence, unspecified, uncomplicated; M32.9 Systemic lupus erythematosus, unspecified; Z90.710 Acquired absence of both cervix and uterus; Z86.73 Personal history of transient ischemic attack (TIA), and cerebral infarction without residual deficits; Z88.5 Allergy status to narcotic agent; Z88.8 Allergy status to other drugs, medicaments and biological substances

== ENCOUNTER 2017-06-23 12:03 | Emergency (ER) | payer OTHER ==
[2017-06-23 12:09] VITALS: BP 168/106; PULSE 117; RESP 18; O2SAT 99
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
[2017-06-23 15:39] LABS: BASOPHILS % (AUTO) 0.2 % (0-3); EOSINOPHILS % (AUTO) 0.1 % (0-5); MONOCYTES % (AUTO) 3.8 % (4-12); Mean Corpuscular Hemoglobin 31.7 pg (27.0-35.0); Mean Corpuscular Volume 92.8 fL (81-100); NEUTROPHILS % (AUTO) 85.1 % (40-74); Platelet Count 282 bil/L (150-400)
[2017-06-23 15:48] LABS: APPEARANCE,URINE CLEAR (CLEAR,HAZY); COLOR,URINE YELLOW (YELLOW); OCCULT BLOOD,URINE TRACE (NEGATIVE); UROBILINOGEN,URINE NORMAL (NORMAL)
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
[2017-06-23 17:18] VITALS: BP 157/113; PULSE 121; O2SAT 97
== END 2017-06-23 18:40 | disposition home or self-care (01) ==
LOC: SED 12:03
DX: F15.10 Other stimulant abuse, uncomplicated (principal); Y04.0XXA Assault by unarmed brawl or fight, initial encounter; Y07.03 Male partner, perpetrator of maltreatment and neglect; Y93.9 Activity, unspecified; Y92.009 Unspecified place in unspecified non-institutional (private) residence as the place of occurrence of the external cause; Y99.8 Other external cause status; I10 Essential (primary) hypertension; E11.9 Type 2 diabetes mellitus without complications; F43.10 Post-traumatic stress disorder, unspecified; M32.9 Systemic lupus erythematosus, unspecified; Z86.73 Personal history of transient ischemic attack (TIA), and cerebral infarction without residual deficits; Z90.710 Acquired absence of both cervix and uterus; F17.200 Nicotine dependence, unspecified, uncomplicated; Z88.1 Allergy status to other antibiotic agents; Z88.8 Allergy status to other drugs, medicaments and biological substances
CPT/HCPCS: 36415; 70450; 72100; 80053; 81001; 81002; 81025; 85025; 99284; G0480

== ENCOUNTER 2017-06-26 22:30 | Emergency (ER) | payer OTHER ==
[~2017-06-26] VITALS: Ht 160 cm; Wt 65.9 kg
[2017-06-26 22:37] VITALS: BP 145/95; PULSE 93; RESP 18; O2SAT 100
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
[2017-06-27 03:37] LABS: APPEARANCE,URINE CLOUDY (CLEAR,HAZY); COLOR,URINE YELLOW (YELLOW); OCCULT BLOOD,URINE SMALL (NEGATIVE)
[2017-06-27 03:38] LABS: UROBILINOGEN,URINE NORMAL (NORMAL)
[2017-06-27 06:54] VITALS: BP 113/53; PULSE 74; RESP 16; O2SAT 98
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
[2017-06-27 13:43] VITALS: BP 130/85; PULSE 108; O2SAT 98
== END 2017-06-27 13:41 | disposition home or self-care (01) ==
LOC: SED 22:30
DX: F19.10 Other psychoactive substance abuse, uncomplicated (principal); F43.0 Acute stress reaction; Y04.8XXA Assault by other bodily force, initial encounter; Y93.89 Activity, other specified; Y92.029 Unspecified place in mobile home as the place of occurrence of the external cause; Y99.8 Other external cause status; I10 Essential (primary) hypertension; E11.9 Type 2 diabetes mellitus without complications; F43.10 Post-traumatic stress disorder, unspecified; F32.9 Major depressive disorder, single episode, unspecified; G89.29 Other chronic pain; F17.200 Nicotine dependence, unspecified, uncomplicated; Z86.73 Personal history of transient ischemic attack (TIA), and cerebral infarction without residual deficits; Z88.1 Allergy status to other antibiotic agents; Z88.8 Allergy status to other drugs, medicaments and biological substances

== ENCOUNTER 2017-06-29 15:55 | Emergency (ER) | payer OTHER ==
[~2017-06-29] VITALS: Ht 160 cm; Wt 63.6 kg
[2017-06-29 16:26] VITALS: BP 137/86; PULSE 115; RESP 18; O2SAT 99
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
[2017-06-29 18:37] LABS: BASOPHILS % (AUTO) 0.1 % (0-3); EOSINOPHILS % (AUTO) 0.3 % (0-5); MONOCYTES % (AUTO) 7.6 % (4-12); Mean Corpuscular Hemoglobin 31.6 pg (27.0-35.0); Mean Corpuscular Volume 93.7 fL (81-100); NEUTROPHILS % (AUTO) 75.3 % (40-74); Platelet Count 284 bil/L (150-400)
[2017-06-30 00:03] VITALS: BP 132/82; PULSE 101; RESP 18; O2SAT 98
== END 2017-06-30 00:15 | disposition home or self-care (01) ==
LOC: SED 15:55
DX: Z59.0 Homelessness (principal); F22 Delusional disorders; F19.10 Other psychoactive substance abuse, uncomplicated; I10 Essential (primary) hypertension; E11.9 Type 2 diabetes mellitus without complications; F32.9 Major depressive disorder, single episode, unspecified; F43.10 Post-traumatic stress disorder, unspecified; F17.200 Nicotine dependence, unspecified, uncomplicated; Z91.14 Patient's other noncompliance with medication regimen; Z86.73 Personal history of transient ischemic attack (TIA), and cerebral infarction without residual deficits; Z90.49 Acquired absence of other specified parts of digestive tract; Z98.890 Other specified postprocedural states; Z88.8 Allergy status to other drugs, medicaments and biological substances
CPT/HCPCS: 36415; 80053; 81002; 84443; 85025; 99283; G0480

== ENCOUNTER 2017-06-30 11:45 | Emergency (ER) | payer OTHER ==
[2017-06-30 11:56] VITALS: BP 102/70; PULSE 117; RESP 18; O2SAT 98
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
== END 2017-06-30 12:25 ==
LOC: SED 11:45 → EDBD 11:45 → SED 12:25
DX: F60.0 Paranoid personality disorder (principal); F15.10 Other stimulant abuse, uncomplicated; F17.200 Nicotine dependence, unspecified, uncomplicated; I10 Essential (primary) hypertension; E11.9 Type 2 diabetes mellitus without complications; F12.10 Cannabis abuse, uncomplicated; Z86.73 Personal history of transient ischemic attack (TIA), and cerebral infarction without residual deficits; Z90.49 Acquired absence of other specified parts of digestive tract; Z59.0 Homelessness; Z79.52 Long term (current) use of systemic steroids; Z88.8 Allergy status to other drugs, medicaments and biological substances

== ENCOUNTER 2017-07-12 10:59 | Emergency (ER) | payer OTHER ==
[~2017-07-12] VITALS: Ht 160 cm; Wt 63.6 kg
[2017-07-12 11:01] VITALS: BP 132/96; PULSE 120; RESP 20; O2SAT 99
--- NOTE | 2017-07-12 11:37 | ED.REPORT ---
HPI-General Illness Date of Service Jul 12, 2017 ED Provider: Harvey Candelario DO The pt is a 47 y/o female w/ a hx of psychosis, PTSD, depression, and HTN presenting to the ED for a mental health evaluation. Denies suicidal or homicidal ideations, or auditory or visual hallucinations. [facility] and was [facility] here. She would like to go to [place] for a mental health eval. She denies any recent drug or alcohol use. Nursing Notes Stated Complaint: CRISIS RESPITE Chief Complaint: Mental health eval Nursing Notes Reviewed: Yes Allergies: Coded Allergies: fluoxetine (Verified Allergy, Severe, 07/12/17) prochlorperazine (Verified Allergy, Severe, 07/12/17) venlafaxine (Verified Allergy, Severe, 07/12/17) diphenhydramine (Verified Allergy, Unknown, anxiety, 07/12/17) hydroxyzine pamoate (Verified Allergy, Unknown, 07/12/17) made her crazy zolpidem (Verified Allergy, Unknown, 07/12/17) nitrofurantoin (Verified Adverse Reaction, Unknown, nausea/vomiting, ) Scheduled Clonazepam (Clonazepam) 0.5 Mg Tablet 0.5 MG PO BID Prednisone (PredniSONE) 5 Mg Tab 15 MG PO DAILY General Time Seen by MD: 11:36 Chief Complaint Other (Mental health eval ) Hx Obtained From: Patient Arrived By: Walk-in Sudden in Onset?: Yes Onset Occurred: Just prior to arrival Symptom Duration: Since onset Recent Healthcare: No recent hospitalization, Recent doctor visit Similar Sx Previous: Yes Past Medical History Past Medical History Notes: 21 ED visits at [facility] in 2017 as of 06/29 Seen on 06/30/2017 also. SEE [facility]SE [facility] SHEET Past Medical History Lupus - certainty and nature of diagnosis is unclear Chronic back pain (slipped disk in back) Addisons disease - PCP says this may not be an official diagnosis - see JOSE [facility] sheet Arthritis Diabetes mellitus Hypertension Stroke (1998) Depression PTSD History of psychosis, NOS, with previous hospital admissions Past Surgical History Cardiac septal defect repaired Sinus surgery Reports: Cholecystectomy, Hysterectomy Family History Noncontributory Smoking History Current Every Day Smoker Social History Alcohol Use: Denies alcohol use Drug Use: Meth, THC Other Social History: Frequent ED visitor, Local resident Occupation homeless 06/30/2017 Ambulatory Status Independent Review of Systems Full Review of Systems Psychiatric: Denies: Hallucinations, auditory, Hallucinations, visual, Homicidal ideation, Suicidal ideation Complete sys rev & neg: except as marked. Physical Exam Vital Signs Vital Signs Date Time Temp Pulse Resp B/P Pulse Ox O2 Delivery O2 Flow Rate FiO2 07/12/17 11:01 36.8 120 20 132/96 99 Room Air Initial VS: Reviewed General/Constitutional: Well-developed, Well-nourished Head / Eyes: Atraumatic, Normocephalic, PERRL ENT: Mucous membranes moist, Conjunctiva normal, No scleral icterus Neck: Supple, Non-tender, Full range of motion Abdomen / GI: Soft, Non-tender, No guarding, No rebound, No distention Extremities: Vascular intact, Neuro intact, No swelling, No tenderness Skin: Warm, Dry, No cyanosis Respiratory / Chest: No respiratory distress Heart Rate / Rhythm: Positive: Tachycardia Psychiatric: Not suicidal, Not homicidal, No hallucinations Interpretation & Diagnostics Lab Results Interpretation Test 07/12/17 12:56 Hold Urine Received (Received) Re-Eval/Medical Decision Med Decision/Clinical Course Please refer to notes from social work. Patient is not of imminent risk of harm to herself or others and is not gravely disabled. Does not meet criteria for involuntary detainment. Seen and evaluated by social work in order to determine safe discharge planning. Source of Hx: Old records Time of Eval: 11:36 Re-Evaluation/Progress Note: Pt informed of the diagnosis and plan for discharge following social work evaluation. The pt understands and agrees with the plan. All questions are addressed at this time. Consultation : Call Returned at: 17:42 Note: Spoke with social staff worker regarding pt's case. sheetmetal worker who has offered multiple possible follow up social work options. The pt is declining these services. sheetmetal worker will now call [facility] to check bed status. Counseled Regarding: Diagnosis, Lab results, Need for follow-up, When/why to return to ED Discharge & Departure Shift Change Sign-Out Patient Care Transferred: Yes Discussed Complaint(s): Yes Laboratory Evaluation: Lab evaluation discussed Primary Impression: Homelessness Disposition: Home Discharge Condition All VS Reviewed: Yes Condition: Stable Referrals: Arin Mata MD (PCP) Care Transferred to: Dr. Sauceda Care Transferred at: 18:00 Scribe Attestation Portions of this note were transcribed by Stevie Lepe. I, Dr. Candelario personally performed the history, physical exam and medical decision-making; I reviewed and confirmed the accuracy of the information in the transcribed note. copies to: Arin Mata MD, Timothy S DO Jul 12, 2017 11:37 Stevie Lepe Jul 12, 2017 12:07 OC RODGERS Jul 12, 2017 17:48
[2017-07-12 19:36] VITALS: BP 118/76; PULSE 86; RESP 18; O2SAT 97
[2017-07-12 22:30] LABS: APPEARANCE,URINE CLEAR (CLEAR,HAZY); COLOR,URINE YELLOW (YELLOW); OCCULT BLOOD,URINE TRACE (NEGATIVE); UROBILINOGEN,URINE NORMAL (NORMAL)
[2017-07-12 23:38] VITALS: BP 148/93; PULSE 87; RESP 16; O2SAT 96
== END 2017-07-12 23:25 | disposition home or self-care (01) ==
LOC: SED 10:59
DX: R30.0 Dysuria (principal); Z59.0 Homelessness; I10 Essential (primary) hypertension; E11.9 Type 2 diabetes mellitus without complications; F32.9 Major depressive disorder, single episode, unspecified; F17.200 Nicotine dependence, unspecified, uncomplicated; Z86.73 Personal history of transient ischemic attack (TIA), and cerebral infarction without residual deficits; Z88.1 Allergy status to other antibiotic agents; Z88.8 Allergy status to other drugs, medicaments and biological substances